=== PATIENT | female | born 1970 | race Caucasian/White ===

== ENCOUNTER 2016-09-23 09:57 | Emergency (ER) | payer MEDICAID | END 2016-09-23 12:37 | disposition home or self-care (01) | LOC: D.ER 09:57 | DX: N91.2 Amenorrhea, unspecified (principal); F17.200 Nicotine dependence, unspecified, uncomplicated ==

== ENCOUNTER 2017-02-19 15:24 | Emergency (ER) | payer MEDICAID | END 2017-02-19 16:33 | disposition home or self-care (01) | LOC: D.ER 15:24 | DX: H10.32 Unspecified acute conjunctivitis, left eye (principal) ==

== ENCOUNTER 2018-07-11 03:12 | Emergency (ER) | payer MEDICAID ==
[~2018-07-11] VITALS: Ht 157.5 cm; Wt 61.4 kg
[2018-07-11 03:14] VITALS: Ht 157.5 cm; Wt 61.4 kg
[2018-07-11 03:34] LABS: BASOPHILS 0.7 % (0-2); EOSINOPHILS 7.7 % (0-7); HEMATOCRIT 43.3 % (36.0-48.0); HEMOGLOBIN 14.9 g/dL (12-16); IMMATURE GRANULOCYTES 0.2 % (0-5); LYMPHOCYTES 24.5 % (15-50); MCH 31.4 pg (26.0-34.0); MCHC 34.4 g/dL (31.0-37.0); MCV 91.2 fL (80.0-100.0); MEAN PLATELET VOLUME 9.7 fL (7.4-10.4); MONOCYTES 7.4 % (2-11); NEUTROPHILS 59.5 % (40-80); PLATELET COUNT 272 10x3/uL (130-400); RBC 4.75 10x6/uL (4.00-5.40); RDW 12.2 % (11.5-14.5); WBC 8.7 10x3/uL (4.8-10.8)
[2018-07-11 03:38] LABS: APTT 31.6 SECONDS (22.8-39.4); INR 1.07 (0.85-1.17); PROTIME 13.4 SECONDS (11.6-15.0)
[2018-07-11 03:41] LABS: ALBUMIN 3.6 g/dL (3.4-5.0); ALKALINE PHOSPHATASE 78 U/L (46-116); ALT (SGPT) 21 U/L (10-68); CALC OSMOLALITY 282 mosm/kg (275-300); CALCIUM 9.4 mg/dL (8.5-10.1); CHLORIDE - SERUM 105 mmol/L (98-107); CREATININE - SERUM 0.7 mg/dL (0.6-1.3); GLUCOSE 119 mg/dL (74-106); POTASSIUM - SERUM 3.7 mmol/L (3.5-5.1); PROTEIN - SERUM 7.7 g/dL (6.4-8.2); SODIUM 141 mmol/L (136-145); UREA NITROGEN 16 mg/dL (7-18); eGFR NON AFRICAN AMERICAN > 90 mL/min (90-120)
[2018-07-11 03:53] LABS: CKMB 2.3 U/L (0.0-3.6); CREATINE KINASE 104 UL (21-215); PRO BNP 24 pg/mL (0-125)
[2018-07-11 03:56] LABS: TROPONIN-I < 0.017 ng/mL (0.000-0.060)
[2018-07-11] MEDS ORDERED: ALBUTEROL SULF8.5 GM INH (04:34)
[2018-07-11 05:08] VITALS: BP 132/78
== END 2018-07-11 05:09 | disposition home or self-care (01) ==
LOC: D.ER 03:12
PROVIDERS: Family Medicine
DX: J44.1 Chronic obstructive pulmonary disease with (acute) exacerbation (principal); F17.200 Nicotine dependence, unspecified, uncomplicated; R06.2 Wheezing

== ENCOUNTER 2018-07-25 00:52 | Emergency (ER) | payer MEDICAID ==
[~2018-07-25] VITALS: Ht 157.5 cm; Wt 61.4 kg
[~2018-07-25 00:52] MED LIST: ALBUTEROL SULF8.5 GM INH
[2018-07-25 00:56] VITALS: Ht 157.5 cm; Wt 61.4 kg
[2018-07-25 01:27] LABS: EOSINOPHILS 8.6 % (0-7); HEMATOCRIT 42.5 % (36.0-48.0); HEMOGLOBIN 14.4 g/dL (12-16); IMMATURE GRANULOCYTES 0.3 % (0-5); MCH 30.4 pg (26.0-34.0); MCHC 33.9 g/dL (31.0-37.0); MCV 89.7 fL (80.0-100.0); MEAN PLATELET VOLUME 9.4 fL (7.4-10.4); MONOCYTES 6.6 % (2-11); NEUTROPHILS 46.5 % (40-80); PLATELET COUNT 291 10x3/uL (130-400); RBC 4.74 10x6/uL (4.00-5.40); RDW 12.3 % (11.5-14.5); WBC 6.7 10x3/uL (4.8-10.8)
[2018-07-25 01:31] LABS: INR 1.09 (0.85-1.17); PROTIME 13.6 SECONDS (11.6-15.0)
[2018-07-25 01:32] LABS: APTT 31.8 SECONDS (22.8-39.4)
[2018-07-25 01:36] LABS: ALBUMIN 3.2 g/dL (3.4-5.0); ALKALINE PHOSPHATASE 70 U/L (46-116); ALT (SGPT) 25 U/L (10-68); BILIRUBIN - TOTAL 0.16 mg/dL (0.2-1.3); CALC OSMOLALITY 283 mosm/kg (275-300); CALCIUM 8.8 mg/dL (8.5-10.1); CHLORIDE - SERUM 105 mmol/L (98-107); CREATININE - SERUM 0.8 mg/dL (0.6-1.3); GLUCOSE 95 mg/dL (74-106); POTASSIUM - SERUM 3.6 mmol/L (3.5-5.1); PROTEIN - SERUM 7.2 g/dL (6.4-8.2); SODIUM 143 mmol/L (136-145); UREA NITROGEN 10 mg/dL (7-18); eGFR NON AFRICAN AMERICAN 81 mL/min (90-120)
[2018-07-25 01:47] LABS: CKMB 0.7 U/L (0.0-3.6); CREATINE KINASE 78 UL (21-215); PRO BNP 9 pg/mL (0-125); TROPONIN-I < 0.017 ng/mL (0.000-0.060)
[2018-07-25] MEDS ORDERED: PROVENTIL/2.5 MG/3 M INH (02:12)
[2018-07-25 02:52] VITALS: BP 116/83
== END 2018-07-25 02:52 | disposition home or self-care (01) ==
LOC: D.ER 00:52
PROVIDERS: Emergency Medicine
DX: J44.1 Chronic obstructive pulmonary disease with (acute) exacerbation (principal); F17.200 Nicotine dependence, unspecified, uncomplicated

== ENCOUNTER 2018-07-30 02:15 | Emergency (ER) | payer MEDICAID ==
[~2018-07-30] VITALS: Ht 157.5 cm; Wt 63.6 kg
[~2018-07-30 02:15] MED LIST changes: +PROVENTIL/2.5 MG/3 M INH
[2018-07-30 02:21] VITALS: Ht 157.5 cm; Wt 63.6 kg
[2018-07-30] MEDS ORDERED: KEFLEX500 MG PO (03:06)
[2018-07-30 03:37] VITALS: BP 117/82
== END 2018-07-30 03:37 | disposition home or self-care (01) ==
LOC: D.ER 02:15
DX: R06.00 Dyspnea, unspecified (principal); J44.1 Chronic obstructive pulmonary disease with (acute) exacerbation; R05 Cough; R09.89 Other specified symptoms and signs involving the circulatory and respiratory systems; R06.2 Wheezing

== ENCOUNTER → 2018-11-26 12:59 | Outpatient (CLI) | payer OTHER ==
[2018-07-30 02:21] VITALS: BMI 25.6
[~2018-11-26 12:59] MED LIST changes: +KEFLEX500 MG PO
== END | disposition home or self-care (01) ==
LOC: D.RT 12:59
PROVIDERS: ATTEND Pediatrics
DX: J44.9 Chronic obstructive pulmonary disease, unspecified (principal)